=== PATIENT | male | born 2000 ===

== ENCOUNTER 2020-01-13 15:33 | Emergency (ER) | payer SELFPAY ==
[~2020-01-13] VITALS: Ht 172.7 cm; Wt 113.2 kg
[2020-01-13 18:50] VITALS: BP 125/78
== END 2020-01-13 19:18 | disposition home or self-care (01) ==
LOC: ED 19:12
DX: S16.1XXA Strain of muscle, fascia and tendon at neck level, initial encounter (principal); S50.312A Abrasion of left elbow, initial encounter; S60.512A Abrasion of left hand, initial encounter; S09.90XA Unspecified injury of head, initial encounter; X58.XXXA Exposure to other specified factors, initial encounter; Y93.89 Activity, other specified; Y92.488 Other paved roadways as the place of occurrence of the external cause; Y99.8 Other external cause status
CPT/HCPCS: 70450; 72125; 99285